=== PATIENT | female | born 1985 | race Caucasian/White ===

== ENCOUNTER → 2024-08-24 | Outpatient (CLI) | payer SELFPAY ==
[2024-08-24 15:01] LABS: Absolute Lymphocyte Count 2.17 X10^3/uL (0.83-4.51); Basophil# 0.02 X10^3/uL; Basophil% 0.3 % (0-1); Eosinophil# 0.04 X10^3/uL; Eosinophils% 0.5 % (0-5); Hematocrit 37.2 % (37-47); Lymphocyte # 2.17 X10^3/ul (0.83-4.51); Lymphocyte % 28.7 % (19-41); Mean Corp Hgb Conc 32.3 g/dL (32-36); Mean Corpuscular Hgb 25.9 pg (27.0-32.0); Mean Corpuscular Volume 80.3 fL (81-99); Mean Platelet Vol. 8.8 fl (6.2-12.0); Monocyte# 0.35 X10^3/uL; Monocyte% 4.6 % (0-10); NRBC Flagged by Analyzer 0 % (0-5); Neutrophil # 4.95 X10^3/uL (2.7-7.7); Neutrophil % 65.6 % (47-70); Platelet Count 484 K/mm3 (150-450); RBC Distribution Width CV 14.2 % (11.6-14.6); Red Blood Count 4.63 M/mm3 (4.2-5.4); White Blood Count 7.6 K/mm3 (4.4-11.0)
[2024-08-24 16:01] LABS: ALB/GLOB Ratio 1.4 RATIO (0.9-2.4); AST(SGOT) 20 U/L (<=31); Alanine Aminotransfer ALT/SGPT 17 U/L (<=34); Albumin, Serum 4.3 g/dL (3.5-5.0); Alkaline Phosphatase 72 U/L (35-104); Anion Gap 15 (5-15); BUN 11 mg/dL (4-19); BUN/Creat Ratio 12.6 RATIO (10-20); Calcium,Total 9.4 mg/dL (7.6-11.0); Carbon Dioxide 22.9 mmol/L (21.0-32.0); Chloride 101 mmol/L (98-108); Creatinine, Serum 0.86 mg/dL (0.70-1.20); EST Glomerular Filtration Rate 87 (>60); Globulin 3.1 g/dL (2.2-4.2); Glucose 116 mg/dL (70-99); Magnesium 2.1 mg/dL (1.5-2.2); Potassium 3.3 mmol/L (3.3-5.1); Protein, Total 7.4 g/dL (5.9-8.4); Sodium Level 138 mmol/L (133-145); Total Bilirubin 1.13 mg/dL (0.00-1.30); Vitamin B12 447 pg/mL (180-914); Vitamin D,25 Hydroxy 31.6 ng/mL (30-100)
[2024-08-27 15:08] LABS: Thyroid Peroxidase AB 10 IU/mL (0-34)
[2024-08-27 17:27] LABS: Hemoglobin A1c 5.8 % (<=5.6)
== END | disposition home or self-care (01) ==
PROVIDERS: PCP Family Medicine; Referring Provider Family Medicine; Visit Provider Family Medicine
DX: R00.2 Palpitations (principal); R73.09 Other abnormal glucose; R53.83 Other fatigue; E01.0 Iodine-deficiency related diffuse (endemic) goiter
CPT/HCPCS: 36415; 80053; 82306; 82607; 83036; 83735; 84439; 84443; 85025; 86376; 86800

== ENCOUNTER → 2024-09-05 | Outpatient (CLI) | payer SELFPAY ==
--- NOTE | 2024-09-05 13:25 | US_ITS ---
PROCEDURE: THYROID 09/05/2024 REASON FOR EXAM: THYROMEGALY TECHNIQUE: THYROID FINDINGS: Right thyroid lobe size: 4.8 x 1.6 x 1.9 cm Left thyroid lobe size: 5.2 x 2.1 x 1.9 cm Isthmus: 0.3 cm Background parenchymal echotexture is heterogenous. Nodules: Right thyroid lobe hypoechoic solid nodule measuring 0.8 x 0.5 x 0.7 cm is noted. No left lobe/isthmus nodules. US/Thyroid IMPRESSION: Right thyroid lobe TR4 nodule. Heterogenous thyroid gland, this could be seen in thyroiditis. Please correlat e with lab results Reading [facility]
== END | disposition home or self-care (01) ==
PROVIDERS: PCP Family Medicine; Referring Provider Family Medicine; Visit Provider Family Medicine
DX: E01.0 Iodine-deficiency related diffuse (endemic) goiter (principal)
CPT/HCPCS: 76536

== ENCOUNTER → 2024-10-17 | Outpatient (CLI) | payer SELFPAY ==
[2024-10-17 15:24] LABS: Hematocrit 38.3 % (37-47); Hemoglobin 12.1 g/dL (12.0-15.0); Immature Granulocytes Count 0.020 X10^3/uL (0.0-0.0); Mean Corp Hgb Conc 31.6 g/dL (32-36); Mean Corpuscular Volume 79.6 fL (81-99); Mean Platelet Vol. 9.0 fl (6.2-12.0); NRBC Flagged by Analyzer 0 % (0-5); Platelet Count 484 K/mm3 (150-450); RBC Distribution Width CV 14.0 % (11.6-14.6); RBC Distribution Width SD 40.3 fl (35.1-43.9); Red Blood Count 4.81 M/mm3 (4.2-5.4); White Blood Count 9.6 K/mm3 (4.4-11.0)
[2024-10-17 15:54] LABS: AST(SGOT) 20 U/L (<=31); Alanine Aminotransfer ALT/SGPT 19 U/L (<=34); Albumin, Serum 4.2 g/dL (3.5-5.0); Alkaline Phosphatase 69 U/L (35-104); Anion Gap 13 (5-15); BUN 13 mg/dL (4-19); BUN/Creat Ratio 18.0 RATIO (10-20); Calcium,Total 9.5 mg/dL (7.6-11.0); Carbon Dioxide 23.9 mmol/L (21.0-32.0); Chloride 101 mmol/L (98-108); Globulin 3.0 g/dL (2.2-4.2); Glucose 89 mg/dL (70-99); Magnesium 2.1 mg/dL (1.5-2.2); Potassium 4.0 mmol/L (3.3-5.1)
== END | disposition home or self-care (01) ==
LOC: MFPLAB 12:17
PROVIDERS: PCP Family Medicine; Referring Provider Family Medicine; Visit Provider Family Medicine
DX: E87.6 Hypokalemia (principal)
CPT/HCPCS: 36415; 80053; 83735; 85025

== ENCOUNTER → 2024-10-30 | Outpatient (CLI) | payer SELFPAY ==
[2024-10-30 13:40] LABS: Cholesterol 189 mg/dL (<=200); Low Density Lipoprotein Calc. 115 mg/dL; Triglycerides 85 mg/dL; Very Low Density Lipoprotein 17 mg/dL (5-40); cholesterol:hdl ratio screen 3.30
== END | disposition home or self-care (01) ==
PROVIDERS: PCP Family Medicine; Referring Provider Internal Medicine Cardiovascular Disease; Visit Provider Internal Medicine Cardiovascular Disease
DX: R00.2 Palpitations (principal)
CPT/HCPCS: 36415; 80061

== ENCOUNTER → 2025-01-03 | Outpatient (CLI) | payer SELFPAY ==
[2025-01-03 13:03] LABS: Hematocrit 40.4 % (37-47); Hemoglobin 12.5 g/dL (12.0-15.0); Immature Granulocytes Count 0.020 X10^3/uL (0.0-0.0); Mean Corp Hgb Conc 30.9 g/dL (32-36); Mean Corpuscular Volume 80.0 fL (81-99); Mean Platelet Vol. 8.9 fl (6.2-12.0); NRBC Flagged by Analyzer 0 % (0-5); Platelet Count 469 K/mm3 (150-450); RBC Distribution Width CV 16.2 % (11.6-14.6); RBC Distribution Width SD 46.5 fl (35.1-43.9); Red Blood Count 5.05 M/mm3 (4.2-5.4); White Blood Count 6.8 K/mm3 (4.4-11.0)
[2025-01-03 13:43] LABS: AST(SGOT) 18 U/L (<=31); Alanine Aminotransfer ALT/SGPT 17 U/L (<=34); Albumin, Serum 4.3 g/dL (3.5-5.0); Alkaline Phosphatase 69 U/L (35-104); Anion Gap 12 (5-15); BUN 17 mg/dL (4-19); BUN/Creat Ratio 20.1 RATIO (10-20); Calcium,Total 10.0 mg/dL (7.6-11.0); Carbon Dioxide 25.8 mmol/L (21.0-32.0); Chloride 101 mmol/L (98-108); Globulin 3.2 g/dL (2.2-4.2); Glucose 95 mg/dL (70-99); Magnesium 2.3 mg/dL (1.5-2.2); Potassium 4.5 mmol/L (3.3-5.1)
== END | disposition home or self-care (01) ==
LOC: MFPLAB 09:51
PROVIDERS: PCP Family Medicine; Visit Provider Family Medicine
DX: I47.10 Supraventricular tachycardia, unspecified (principal); E66.01 Morbid (severe) obesity due to excess calories; R73.02 Impaired glucose tolerance (oral)
CPT/HCPCS: 36415; 80053; 83036; 83735; 84443; 85025